=== PATIENT | female | born 1995 ===

== ENCOUNTER 2017-03-01 07:44 | Emergency (ER) | payer OTHER ==
[2017-03-01 07:58] VITALS: BP 121/74
--- NOTE | 2017-03-01 08:42 | UC ---
Complaint Female HPI - HPI Summary HPI Summary: Starting yesterday she has had dysuria and frequency. She says there is no pain in the abdomen, pelvis or back. No vomiting or fever. She is monogamous and on control. No prior STD. - History Of Current Complaint Chief Complaint: UCGU Stated Complaint: URINARY Time Seen by Provider: 03/01/17 08:22 Hx Obtained From: Patient Hx Last Menstrual Period: 02/24/17 ?: No Onset/Duration: Gradual Onset, Lasting Hours Timing: Constant, Lasting Hours Severity Initially: Moderate Severity Currently: Moderate Character: Sharp, Burning Aggravating Factor(s): Urination Alleviating Factor(s): Other - retracting labia helps symptoms during urination. Associated Signs And Symptoms: Positive: Negative - Allergies/Home Medications Allergies/Adverse Reactions: Allergies Allergy/AdvReac Type Severity Reaction Status Date / Time No Known Allergies Allergy Verified 03/01/17 07:58 Home Medications: Home Medications Pintrea Control 1 tab PO DAILY 03/01/17 [History] PMH/Surg Hx/FS Hx/Imm Hx Previously Healthy: No - Prior uti in the past. - Surgical History Surgical History: Yes Surgery Procedure, Year, and Place: wisdom teeth - Family History Known Family History: Positive: Other - no related urologic history. - Social History Alcohol Use: Occasionally Substance Use Type: None Smoking Status (MU): Never Smoked Tobacco Review of Systems Genitourinary: Dysuria All Other Systems Reviewed And Are Negative: Yes Physical Exam Triage Information Reviewed: Yes Appearance: Well-Appearing, No Pain Distress, Well-Nourished Vital Signs: Initial Vital Signs Temp 98.1 F 03/01/17 07:53 Pulse 81 03/01/17 07:53 Resp 16 03/01/17 07:53 BP 121/74 03/01/17 07:53 Pulse Ox 100 03/01/17 07:53 Vital Signs Reviewed: Yes Eyes: Positive: Conjunctiva Clear ENT: Positive: Normal ENT inspection Neck exam: Normal Neck: Positive: Supple, Nontender, No Lymphadenopathy. Negative: Nuchal Rigidity Respiratory: Positive: Lungs clear, Normal breath sounds, No respiratory distress, No accessory muscle use. Negative: Respiratory distress Cardiovascular: Positive: No Murmur, Pulses Normal, Brisk Capillary Refill Abdomen Description: Positive: No Organomegaly, Soft, Other: - mild suprapubic tenderness without guarding. exam benign and no inflammation, discharge, cervical irritation, friability.. Negative: CVA Tenderness (R), CVA Tenderness (L), Distended, Guarding Musculoskeletal: Positive: Strength Intact, ROM Intact, No Edema Neurological: Positive: Alert, Muscle Tone Normal. Negative: Fatigued Psychological: Positive: Age Appropriate Behavior Skin: Negative: rashes Complaint Female Dx - Course Course Of Treatment: UTI type symptoms that are helped with physical manipulation of the labia during urination. This leads me to believe that there may be an origen on the outside. Exam is totally benign though and there is suprapubic tenderness. We will treat as uti but she agrees to return if there is no improvement. - Differential Dx/Diagnosis Provider Diagnoses: uti Discharge - Discharge Plan Condition: Good Disposition: HOME Prescriptions: Nitrofurantoin Monohyd Macro [Macrobid] 100 mg PO BID #20 cap Patient Education Materials: Dysuria (ED) Referrals: Non Staff,Doctor [Primary Care Provider] - Additional Instructions: return if this does not improve.
== END 2017-03-01 08:56 | disposition home or self-care (01) ==
LOC: UCCORT 07:44
DX: N39.0 Urinary tract infection, site not specified (principal); B96.20 Unspecified Escherichia coli [E. coli] as the cause of diseases classified elsewhere
CPT/HCPCS: 81003; 87077; 87086; 87186; 87480; 87491; 87510; 87591; 87661; 99212; G0463

== ENCOUNTER 2017-03-31 16:23 | Emergency (ER) | payer OTHER ==
--- OUTSIDE RECORDS SUMMARY | 2017-03-31 16:55 | XMS REPORT ---
:1995 External Reference #:[id number] Author Organization [employer] Address [address] [address] Phone [phone] Care Team Providers Name Role Phone Leatha Myrick DO Primary Care Physician Unavailable Payers Type Date Identification Numbers Payment Provider Subscriber Commercial Policy Number: [id number] [facility] ([place] Vanita Haney PayID: [id number] [address] [address] [place] [address] Problems Description No Information Family History Date Family Member(s) Problem(s) Comments Father Heart Disease Father paternal grandfather-diabetes and [place]( of) Father Hypertension Mother maternal grandmother-CHF. Had 2 open heart surgeries. Social History Type Date Description Comments Marital Status Single Lives With on campus [facility] Occupation Student [employer] ETOH Use Rarely consumes alcohol Smoking Patient has never smoked Recreational Drug Use Denies Drug Use Daily Caffeine consumes chocolate frequently Daily Caffeine Hot tea occassionally Exercise Type/Frequency Exercises regularly runs track. Has not exercised much in last month. 12/16/16. Allergies, Adverse Reactions, Alerts Date Description Reaction Status Severity Comments 11/03/2016 NKDA active Medications Medication Date Status Form Strength Qnty SIG Indications Ordering Provider Pimtrea Active Tablets 0.15-0.02/0. 1 po daily Unknown 00 01 mg (29/06) Ibuprofen Active Tablets 200mg 1 po as Unknown 00 needed Vital Signs Date Vital Result Comment 12/16/2016 Height 66.25 inches 5'6.25" Weight 116.50 lb w/shoes Heart Rate 68 /min BP Systolic Sitting 140 mmHg LA reg cuff BP Diastolic Sitting 88 mmHg LA reg cuff BMI (Body Mass Index) 18.7 kg/m2 Height Percentile 78 % Weight Percentile 28th Ejection Fraction 55-60% Echo 11/12/16 11/07/2016 Height 66.25 inches 5'6.25" Weight 117.00 lb Heart Rate 64 /min BP Systolic 102 mmHg LA Regular Cuff BP Diastolic 72 mmHg LA Regular Cuff BP Systolic Sitting 100 mmHg Ra Regular Cuff BP Diastolic Sitting 64 mmHg Ra Regular Cuff BP Systolic Standing 112 mmHg Ra Regular Cuff BP Diastolic Standing 72 mmHg Ra Regular Cuff Respiratory Rate 16 /min Pain Level 0 O2 % BldC Oximetry 98 % BMI (Body Mass Index) 18.7 kg/m2 Height Percentile 78 % Weight Percentile 29th Results Description No Information Procedures Date CPT Code Description Status 12/09/2016 67378 ECHO Stress Test Incl Perf Contiuous ekg Monitoring Completed W/Phys Superv 12/04/2016 73636 Holter Monitor Review (24 hr)dr shah & yolandep Completed only 12/03/2016 26644 ECG Monitor/Recording W/Visual Superimposition Scanning Completed 11/12/2016 09427 ECHO Transthoracic, Real-Time 2D With Doppler And Color Completed Flow 11/07/2016 94319 EKG Tracing & Interpretation Completed Encounters Type Date Location Provider CPT E/M Dx Office Visit 12/16/2016 1:30p [facility] Roberta Millan, [address] R00.2 Kurt R00.0 Office Visit 11/07/2016 9:00a Cardiology Services Roberta Quesada [address] R00.0 Of [facility] Kurt Millan R00.2 R06.02 Plan of Care 12/16/2016 - Roberta Millan M.D.R00.2 [id number] Tachycardia, unspecifiedFollow up:01/2017 to discuss event monitor
[2017-03-31 17:26] VITALS: BP 111/73
--- NOTE | 2017-03-31 18:42 | UC ---
Throat Pain/Nasal [place] HPI - HPI Summary HPI Summary: Pt presents with passing small white stones from under back tongue x 2 days. mild discomfort. no fevers,chills. no swelling. no drooling. No difficulty with swallowing, chewing. no drooling. No h/o similar. Pt's medications reviewed this visit - History of Current Complaint Chief Complaint: UCRespiratory Stated Complaint: SORE THROAT Time Seen by Provider: 03/31/17 18:32 Hx Obtained From: Patient Hx Last Menstrual Period: 03/24/17 ?: No Onset/Duration: Sudden Onset Severity: Mild Pain Intensity: 0 Associated Signs & Symptoms: Positive: Negative - Epiglottits Risk Factors Epiglottis Risk Factors: Negative - Allergies/Home Medications Allergies/Adverse Reactions: Allergies Allergy/AdvReac Type Severity Reaction Status Date / Time No Known Allergies Allergy Verified 03/31/17 17:16 PMH/Surg Hx/FS Hx/Imm Hx Previously Healthy: Yes Cardiovascular History: Other Other Cardiovascular History: palpitations Psychological History: Anxiety - Surgical History Surgical History: Yes Surgery Procedure, Year, and Place: wisdom teeth - Family History Known Family History: Positive: Other - no related urologic history. - Social History Occupation: Student Lives: Dormitory/Roommates Alcohol Use: None Substance Use Type: None Smoking Status (MU): Never Smoked Tobacco Review of Systems Constitutional: Negative Skin: Negative Eyes: Negative ENT: Other - stones from salivary duct All Other Systems Reviewed And Are Negative: Yes Physical Exam Triage Information Reviewed: Yes Appearance: Well-Appearing, No Pain Distress, Well-Nourished Vital Signs: Initial Vital Signs Temp 99.1 F 03/31/17 17:16 Pulse 78 03/31/17 17:16 Resp 20 03/31/17 17:16 BP 111/73 03/31/17 17:16 Pulse Ox 100 03/31/17 17:16 Vital Signs Reviewed: Yes Eye Exam: Normal ENT Exam: Normal ENT: Positive: Normal ENT inspection, Pharynx normal, Pharyngeal erythema, Uvula midline, Other - pt with small, visible sialioth sublingual left salivary duct - non tender, no bleeding, mild fullness, on tender Dental Exam: Normal Neck exam: Normal Neck: Positive: Supple, Nontender, No Lymphadenopathy Respiratory Exam: Normal Respiratory: Positive: Chest non-tender, Lungs clear, Normal breath sounds, No respiratory distress, No accessory muscle use Cardiovascular Exam: Normal Cardiovascular: Positive: RRR, No Murmur Abdominal Exam: Normal Abdomen Description: Positive: Nontender, No Organomegaly Bowel Sounds: Positive: Present Musculoskeletal Exam: Normal Musculoskeletal: Positive: Strength Intact Neurological Exam: Normal Skin Exam: Normal Throat Pain/Nasal Course/Dx - Course Course Of Treatment: pt with small stone left sublingual salivary duct non- tender. d/w pt at length -. warm salt water rinses. sour candies. f/u with ENT - pt requesting [facility] second to insurance not covering [facility] cardiology but [facility] - referral to katharine. no current concern for infection - no abx. return precautions discussed. pt comfortable and in agreement with plan - Differential Dx/Diagnosis Provider Diagnoses: salivary duct stone Discharge - Discharge Plan Condition: Stable Disposition: HOME Patient Education Materials: Sialoadenitis (ED) Referrals: Omar Ontiveros MD [Medical Doctor] - No Primary Care Phys,NOPCP [Primary Care Provider] - Additional Instructions: - the doctor that evaluated you today thinks you are passing small pieces of a salivary gland stone. there is no concern on today's examination for an infection or complete blockage of the duct. - it is recommended you gargle and spit with warm salt water - it is recommended you eat / suck on sour foods to promote saliva production from the gland - okay to take ibuprofen (advil, Motrin) and tylenol every 3 hour for pain. Take with food. Do NOT take for more than 4-5 days - you have given a referral to Dr. Ontiveros - ENT specialist - it is recommended you contact his office to schedule a follow-up appointment - okay to return here, go to the student health clinic, or the emergency department with questions or concerns
== END 2017-03-31 19:05 | disposition home or self-care (01) ==
LOC: UCCORT 16:23
DX: K11.5 Sialolithiasis (principal)
CPT/HCPCS: 87651; 99211; G0463